=== PATIENT | male | born 1950 | race Caucasian/White ===

== ENCOUNTER 2016-05-23 05:25 | Day surgery (SDC) | payer OTHER ==
[~2016-05-23] VITALS: Ht 175.3 cm; Wt 93.1 kg
[~2016-05-23 05:25] MED LIST: APRESOLINE50 MG PO; BACTRIM,SEPT1 TABLE1 PO; COREG3.125 M1 PO; FLOMAX0.4 MG PO; LIPITOR10 MG PO; NORVASC5 MG PO; PLAVIX75 MG PO; RAYOS5 MG PO; ROCALTROL0.25 MCG PO; TOPROL XL25 MG PO
[2016-05-23 06:08] VITALS: BP 148/67
[2016-05-23 06:38] LABS: HEMATOCRIT 30.1 % (38.0-50.0); MCH 35.3 PG (29.0-34.0); MCHC 33.2 G/DL (30.0-36.0); MCV 106.4 FL (86-99); MEAN PLAT.VOLUME 9.5 uM^3 (9.0-12.4); PLATELET COUNT 169 K/uL (156-360); RBC DIS.WIDTH-CV 15.3 % (11.8-14.6); RBC DIS.WIDTH-SD 59.4 % (39-53); RED BLOOD COUNT 2.83 M/uL (4.00-5.50); WHITE BLOOD COUNT 7.4 K/uL (4.1-10.2)
[2016-05-23 07:12] LABS: ANION GAP 13 MEQ/L (2-14); CHLORIDE 97 MEQ/L (99-109); GFR ESTIMATE (CALCULATED) 8 mL/min/; GLUCOSE 104 mg/dL (70-99); POTASSIUM 3.9 MEQ/L (3.7-5.4); SAMPLE HEMOLYSIS CHECK 0; SAMPLE ICTERIC CHECK 0; SAMPLE LIPEMIA CHECK 0; SODIUM 141 MEQ/L (136-147); UREA NITROGEN (BUN) 34 mg/dL (9-23)
[2016-05-23 07:40] LABS: METH RESISTANT S AUREUS PCR NEGATIVE (NEGATIVE)
[2016-05-23 07:41] LABS: PROBE CHECK PASS; SPECIMEN PROCESSING CONTROL PASS
[2016-05-23 09:43] VITALS: BP 143/58
[2016-05-23 10:10] VITALS: BP 157/59
== END 2016-05-23 10:20 | disposition home or self-care (01) ==
LOC: SDC 05:25
PROVIDERS: Surgery
PROC: 05WY07Z Revision of Autologous Tissue Substitute in Upper Vein, Open Approach (ICD-10-PCS; principal; 2016-05-23)
DX: T82.898A Other specified complication of vascular prosthetic devices, implants and grafts, initial encounter (principal); Y83.2 Surgical operation with anastomosis, bypass or graft as the cause of abnormal reaction of the patient, or of later complication, without mention of misadventure at the time of the procedure; I12.0 Hypertensive chronic kidney disease with stage 5 chronic kidney disease or end stage renal disease; E11.22 Type 2 diabetes mellitus with diabetic chronic kidney disease; N18.6 End stage renal disease; Z99.2 Dependence on renal dialysis; I25.10 Atherosclerotic heart disease of native coronary artery without angina pectoris; I25.2 Old myocardial infarction; M19.90 Unspecified osteoarthritis, unspecified site; Z79.02 Long term (current) use of antithrombotics/antiplatelets; Z79.52 Long term (current) use of systemic steroids
CPT/HCPCS: 80048; 85027; 87641; J0690; J1644; J2720